=== PATIENT | female | born 1970 | race Caucasian/White ===

== ENCOUNTER → 2020-01-03 | Outpatient (CLI) | payer BC ==
[2020-01-03 10:25] LABS: FREE T4 0.75 ng/dl (0.76-1.46)
[2020-01-03 10:32] LABS: THYROID STIM HORMONE (HS) 2.91 uIU/ml (0.358-4.75)
== END | disposition home or self-care (01) ==
LOC: LAB 09:26
PROVIDERS: Family Medicine
DX: E78.2 Mixed hyperlipidemia (principal); E03.9 Hypothyroidism, unspecified

== ENCOUNTER → 2020-03-25 | Outpatient (CLI) | payer BC | END | disposition home or self-care (01) | LOC: US 10:00 | DX: R92.8 Other abnormal and inconclusive findings on diagnostic imaging of breast (principal) ==

== ENCOUNTER → 2021-01-26 | Outpatient (CLI) | payer BC | END | disposition home or self-care (01) | LOC: US 09:24 | PROVIDERS: ATTEND Family Medicine | DX: E04.1 Nontoxic single thyroid nodule (principal) ==

== ENCOUNTER → 2023-12-14 | Outpatient (CLI) | payer BC | END | disposition home or self-care (01) | LOC: US 00:46 | PROVIDERS: ATTEND Nurse Practitioner Women's Health | DX: R10.2 Pelvic and perineal pain (principal) ==